=== PATIENT | female | born 1990 | race Caucasian/White ===

== ENCOUNTER 2020-10-21 22:01 | Emergency (ER) | payer OTHER ==
[~2020-10-21 22:01] MED LIST: FLEXERIL10 MG PO
[2020-10-21 22:54] LABS: BASOPHIL 0.7 % (0-2); EOSINOPHIL 5.9 % (0-5); HCT 45.2 % (37.0-47.0); LYMPHOCYTE 21.9 % (15-48); MCH 29.2 pg (25.0-31.0); MCHC 33.2 g/dL (32.0-36.0); MCV 87.9 fL (78.0-100.0); MONOCYTE 5.7 % (0-12); MPV 9.7 fL (6.0-9.5); NEUTROPHIL 65.2 % (41-80); NRBC 0; PLT 211 K/uL (150-400); RBC 5.14 M/uL (4.20-5.40); RDW 13.1 % (11.5-14.0); WBC 12.3 K/uL (4.0-10.5)
[2020-10-21 23:03] LABS: BILIRUBIN NEGATIVE (NEGATIVE); BLOOD 1+ Ery/uL (NEGATIVE); CLARITY CLEAR (CLEAR); COLOR YELLOW (YELLOW); GLUCOSE (U) NORMAL (NORMAL); LEUKOCYTES NEGATIVE Leu/uL (NEGATIVE); NITRITE NEGATIVE (NEGATIVE); PROTEIN 1+ mg/dL (NEGATIVE); SPECIFIC GRAVITY >=1.030 (1.001-1.030); UROBILINOGEN 0.2 mg/dL (0.2-1.0)
[2020-10-21 23:09] LABS: BACTERIA 1+
[2020-10-21 23:14] LABS: ALBUMIN 3.8 g/dL (3.4-5.0); BILIRUBIN - TOTAL 0.2 mg/dL (0.2-1.0); BUN/CREAT RATIO (CALC) 16.2 RATIO; CREATININE 0.68 mg/dL (0.51-0.95); GLOBULIN (CALCULATION) 3.8 g/dL; POTASSIUM 3.8 mmol/L (3.5-5.1); TOTAL PROTEIN 7.6 g/dL (6.4-8.2)
[2020-10-23 20:10] LABS: CHLAMYDIA TRACHOMATIS, NAA Negative (Negative); NEISSERIA GONORRHOEAE, NAA Negative (Negative)
== END 2020-10-22 04:30 | disposition home or self-care (01) ==
LOC: FER 22:01
PROVIDERS: Emergency Medicine
DX: R10.84 Generalized abdominal pain (principal); N89.8 Other specified noninflammatory disorders of vagina; F17.210 Nicotine dependence, cigarettes, uncomplicated; Z85.41 Personal history of malignant neoplasm of cervix uteri; Z98.890 Other specified postprocedural states; Z90.49 Acquired absence of other specified parts of digestive tract
CPT/HCPCS: 36415; 76830; 80053; 81001; 83690; 85025; 87491; 87591; J1170; J2405; J7030; Q9967